=== PATIENT | female | born 1980 | race Hispanic/Latino ===

== ENCOUNTER 2024-05-11 12:06 | Emergency (ER) | payer BC ==
[~2024-05-11] VITALS: Ht 160 cm; Wt 81.6 kg
[2024-05-11] MEDS: PEG 3350/NA SULF,BICARB,CL/KCL 4000 ML SOLN PO ONE (13:44)
--- NOTE | 2024-05-11 13:57 | HMCIMG ---
ABDOMEN SINGLE VIEW INDICATION: Pain COMPARISON: None FINDINGS: Supine view only No abnormal bowel dilation noted. No abnormal calcifications identified. No gross free air detected. IMPRESSION: No evidence for constipation or bowel obstruction.
--- NOTE | 2024-05-11 14:05 | ERN ---
ED Note History of Present Illness Stated Complaint: CONSTIPATION Chief Complaint: Constipation Time Seen by MD: 12:22 Time Seen by Midlevel: 12:28 Dictation: 43-year-old female complaining of chronic constipation. Patient states she has been suffering from abnormal bowels movements since she was 17. Patient states last BM was yesterday but she really struggled to past BM. Patient states it is painful and feels something stuck in there. Denies any fever, nausea, vomiting. Allergies: Coded Allergies: No Known Drug Allergies (Unverified Allergy, Unknown, 05/11/24) Past Medical History Past Medical History: Other Additional Past Medical Hx: CHRONIC CONSTIPATION Surgical History: Other Surgical History Other: BILATERAL BREAST IMPLANTS Review of System Dictation Constitutional: Negative for fever,chills, and weight loss Eyes: Negative for injury, pain,redness, and discharge ENT: Negative for injury,pain or swelling Cardiovascular: Negative for chest pain, palpitations, and edema Respiratory: Negative for shortness of breath, cough, and wheezing, Abdomen/GI: Negative for abdominal pain, nausea, vomiting, diarrhea, positive for constipation Back: Negative for injury and pain : Negative for injury, bleeding and discharge MS/Extremity: Negative for injury and deformity Skin: Negative for rash, and discoloration Neuro: Negative for headache, weakness, numbness, tingling, and seizure Psych: Negative for suicide ideation, homicidal ideation, and hallucinations Review of Systems: was completed Initial Vital Sign VS Vital Signs Date Time Temp Pulse Resp B/P (MAP) Pulse Ox O2 Delivery O2 Flow Rate FiO2 05/11/24 12:11 98.1 58 16 146/63 100 Room Air Physical Exam Dictation General: awake, alert, NAD Head/Face: Normocephalic, atraumatic Eyes: PERRL, EOMI, vision at baseline ENT: oral cavity clear, TMs clear, no signs of infection Neck: Trachea midline, supple, no nuchal rigidity Cardiovascular: RRR, normal S1/S2, No MRGs, no JVD Respiratory: CTAB, no respiratory distress, No rales or wheezes Abdomen: Soft, non-tender, non-distended, normal bowel sounds, no guarding or rebound. Skin: Warm, dry, normal turgor, no rash MS/Extremity: Pulses equal, no cyanosis, neurovascular intact, FROM Neuro: COAx4, GCS 15, strength 5/5, CN 2-12 intact, normal cerebellar exam, normal gait, Psych: Normal behavior, mood, and affect normal The did a rectal exam with Lynnette RN at bedside, external hemorrhoids noted, nonthrombosed. No fecal impaction, obstruction noted at the rectal wall. Results (Laboratory/Radiology) X-RAY Comment: [facility] [address] [place] [address] IMAGING REPORT Signed PATIENT: JONATAN GANN MR#: [id number] : 1980 SEX: F AGE: 43 LOCATION: [facility] ORDER 1235 STATUS: [facility] ER REPORT#: [id number] SERVICE 1234 REASON: constipation ORDERING PHYSICIAN: ESSIE HUNT NP PROCEDURE: ABD 1VW - ABD 1VW ABDOMEN SINGLE VIEW INDICATION: Pain COMPARISON: None FINDINGS: Supine view only No abnormal bowel dilation noted. No abnormal calcifications identified. No gross free air detected. IMPRESSION: No evidence for constipation or bowel obstruction. DICTATED BY: ÁLVARO TABOR MD DATE: 05/11/24 135 ELECTRONICALLY SIGNED BY: ÁLVARO TABOR MD DATE: 05/11/24 135 ED Course ED Course Orders Procedure Category Date Status Time Peg 3350/Na PHA 05/11/24 Complete Sulf,Bicarb,Cl/Kcl 13:00 Abd 1vw RAD 05/11/24 Resulted 12:34 *Nursing CPOE 05/11/24 Transmitted Communication: 14:41 Current Medications Medications (Trade) Dose Ordered Sig/Jatin Route PRN Reason Start Time Stop Time Status Last Admin Dose Admin Polyethylene Glycol/ Electrolytes (Golytely/Colyte Soln) 4,000 ml ONCE ONCE PO 05/11/24 13:00 05/11/24 13:01 DC 05/11/24 13:44 Vital Signs Date Time Temp Pulse Resp B/P (MAP) Pulse Ox O2 Delivery O2 Flow Rate FiO2 05/11/24 12:11 98.1 58 16 146/63 100 Room Air Medical Decision Making MDM MDM: 43-year-old female complaining of chronic constipation. Patient states she has been suffering from abnormal bowels movements since she was 17. Patient states last BM was yesterday but she really struggled to past BM. Patient states it is painful and feels something stuck in there. Denies any fever, nausea, vomiting. After GoLYTELY patient was able to have a bowel movement. Patient did state she takes frequent laxatives, advised patient says stopped taking laxatives so frequently and see PCP and or a sample selector. Educated on signs and symptoms to return back to the ER. Patient verbalized understanding, answered all questions. Differential diagnosis: Constipation, fecal impaction Rationale: Tests considered and ordered secondary to shared decision making include: Previous outside records reviewed: Old ER visits. Risk of complication and/or morbidity or mortality of patient management: None Medications-Per medication reconciliation Need for hospitalization: Patient does not meet criteria for hospitalization. Need for emergency major/minor surgery: No There are no social concerns with this patient. Prescription drug management Prescriptions will include symptomatic care Patient's prior external medical records from other ER visits were reviewed by me as indicated. Prior testing and results from previous visits were reviewed. Prior tests were taken into account with medical decision making and resource utilization, independent historian/historians were used to obtain complete medical history. I independently interpreted the test that were performed, results were reviewed by me and considered findings on radiology if ordered. Medical management and examination interpretation discussions were had by me with other qualified healthcare professionals as indicated for the patient's care. DX & DISP Disposition: Discharge Departure Impression: Primary Impression: Chronic constipation Additional Impression: External hemorrhoid Condition: Stable Additional Instructions: Increase fluid intake, eat more fiber. Follow up with PCP and or with sample selector. Return to the ER if you have any worsening symptoms. Referrals: SELF,REFERRAL (PCP) MONALISA LAUREN MD Time of Disposition: 15:13 I have reviewed the case, and I agree with, Diagnosis and Plan ESSIE HUNT NP May 11, 2024 14:05
--- NOTE | 2024-05-11 15:00 | NUR ---
PT WAS ABLE TO HAVE MULTIPLE BOWEL MOVEMENTS DESCRIBED LOOSE AND EASILY PASSING. PT REPORTS THAT SHE IS HAVING TROUBLE DIFFICULTY ONLY HER HEMORROIDS ARE AGGRAVATED. DENIES ANY BLEEDING.
[2024-05-11 15:38] VITALS: BP 127/59; PULSE 77; RESP 18; TEMP 97.7; O2SAT 98
== END 2024-05-11 15:38 | disposition home or self-care (01) ==
LOC: EDH 12:06
DX: K59.00 Constipation, unspecified (principal); K64.4 Residual hemorrhoidal skin tags
CPT/HCPCS: 74018; 99283